=== PATIENT | male | born 1970 | race Caucasian/White ===

== ENCOUNTER 2021-07-19 04:50 | Emergency (ER) | payer OTHER ==
[2021-07-19 05:15] LABS: BASOPHIL 0.3 % (0-2); EOSINOPHIL 1.2 % (0-5); HCT 52.1 % (42.0-52.0); HGB 18.1 g/dl (13.2-18.0); LYMPHOCYTE 22.8 % (15-48); MCH 32.9 pg (25.0-31.0); MCHC 34.7 g/dL (32.0-36.0); MCV 94.7 fL (78.0-100.0); MONOCYTE 13.6 % (0-12); MPV 9.5 fL (6.0-9.5); NEUTROPHIL 61.6 % (41-80); NRBC 0; PLT 241 K/uL (150-400); RDW 13.1 % (11.5-14.0); WBC 12.3 K/uL (4.0-10.5)
[2021-07-19 06:11] LABS: ALBUMIN 3.6 g/dL (3.4-5.0); BILIRUBIN - TOTAL 1.3 mg/dL (0.2-1.0); BUN/CREAT RATIO (CALC) 20.7 RATIO; CREATININE 0.87 mg/dL (0.67-1.17); GLOBULIN (CALCULATION) 4.4 g/dL; POTASSIUM 3.9 mmol/L (3.5-5.1)
[2021-07-19 06:24] LABS: CORONAVIRUS 2019 SARS-COV-2 NEGATIVE (NEGATIVE); INFLUENZA A NAA NEGATIVE (NEGATIVE)
== END 2021-07-19 09:58 | disposition other institution (70) ==
LOC: FER 04:50
PROVIDERS: Emergency Medicine
DX: I21.4 Non-ST elevation (NSTEMI) myocardial infarction (principal); K14.8 Other diseases of tongue; I10 Essential (primary) hypertension; F17.200 Nicotine dependence, unspecified, uncomplicated; Z79.899 Other long term (current) drug therapy; Z20.822 Contact with and (suspected) exposure to COVID-19
CPT/HCPCS: 36415; 71045; 71275; 80053; 84145; 84484; 85025; 85379; 85730; 93005; J1200; J1644; J2930; J7030; Q9967; U0002

== ENCOUNTER 2021-11-24 22:00 | Emergency (ER) | payer OTHER ==
[2021-11-24 23:17] LABS: BASOPHIL 0.3 % (0-2); EOSINOPHIL 3.7 % (0-5); MCH 30.1 pg (25.0-31.0); MCV 88.5 fL (78.0-100.0); MONOCYTE 11.9 % (0-12); MPV 10.1 fL (6.0-9.5); NEUTROPHIL 54.8 % (41-80); NRBC 0; PLT 222 K/uL (150-400); RBC 5.31 M/uL (4.70-6.00); RDW 14.6 % (11.5-14.0); WBC 9.2 K/uL (4.0-10.5)
[2021-11-24 23:22] LABS: ALBUMIN 3.6 g/dL (3.4-5.0); BILIRUBIN - TOTAL 0.5 mg/dL (0.2-1.0); BUN/CREAT RATIO (CALC) 26.6 RATIO; CREATININE 0.79 mg/dL (0.67-1.17); GLOBULIN (CALCULATION) 3.7 g/dL; POTASSIUM 4.1 mmol/L (3.5-5.1); TOTAL PROTEIN 7.3 g/dL (6.4-8.2)
== END 2021-11-25 03:10 | disposition home or self-care (01) ==
LOC: FER 22:00
PROVIDERS: Emergency Medicine
DX: T78.3XXA Angioneurotic edema, initial encounter (principal); R07.89 Other chest pain; I10 Essential (primary) hypertension; I25.10 Atherosclerotic heart disease of native coronary artery without angina pectoris; E78.5 Hyperlipidemia, unspecified; Z28.310 Unvaccinated for COVID-19; Z95.1 Presence of aortocoronary bypass graft; Z88.8 Allergy status to other drugs, medicaments and biological substances; Z79.82 Long term (current) use of aspirin; Z79.02 Long term (current) use of antithrombotics/antiplatelets; Z79.899 Other long term (current) drug therapy
CPT/HCPCS: 36415; 71045; 80053; 83880; 84484; 85025; 93005